=== PATIENT | male | born 1965 | race Caucasian/White ===

== ENCOUNTER 2016-07-28 13:18 | Emergency (ER) | payer SELFPAY ==
[2016-07-28 13:54] VITALS: BMI 23.6
[2016-07-28 14:05] LABS: AUTOMATED EOSINOPHIL 4.1 % (0-5); AUTOMATED LYMPH 23.6 % (17-44); AUTOMATED MONOCYTE 11.7 % (3-10); AUTOMATED NEUTROPHIL 59.6 % (45-76); MPV 8.8 fL (7.4-10.4)
[2016-07-28 14:08] LABS: LEUKOCYTES/URINE NEG (NEGATIVE); NITRITE/URINE NEG (NEGATIVE); RBC/URINE 0-2 (0-2); URINE OCCULT BLOOD NEG (NEG/TRACE); WBC/URINE 0-2 (0-2)
[2016-07-28 14:25] LABS: BLOOD UREA NITROGEN 17 MG/DL (9-20); CALCIUM 9.7 MG/DL (8.4-10.2); CALCULATED OSMOLALITY 270 MOs/Kg (270-290); CHLORIDE 104 mEq/L (98-107); GLUCOSE 80 MG/DL (70-99); SODIUM LEVEL 140 mEq/L (137-146); TOTAL PROTEIN 8.8 G/DL (6.3-8.2)
--- NOTE | 2016-07-28 17:03 | EDPRACDOC ---
- General Information Mode Of Arrival: Car - History of Present Illness Onset: YESTERDAY Pain Location: Reports: LUQ, LLQ Pain Context: Reports: Spontaneous Pain Severity: Severe Pain Quality: Reports: Aching, Sharp, Stabbing Pain Radiation: Reports: Back Adult Abdominal History: Reports: Similar Pain (dx) (PANCREATITIS, COLITIS, DIVERTICULITIS) Modifying Factors: improves with: Nothing Associated Signs & Symptoms: Reports: Nausea, Diarrhea, Dysuria, Fever. Denies : Frequency, Hematuria, Vomiting, Hematemesis, Anorexia, Melena, Urgency, Chills Oral Intake: Normal Urinary Output: Normal <Saman Nunn - Last Filed: 07/28/16 18:07> <Wade Ayala - Last Filed: 07/28/16 18:58> - General Information Chief Complaint: Abdominal Pain Stated Complaint: ABD PAIN & LOWER BACK PAIN Time Seen by Provider: 07/28/16 16:56 Home Medications: Home Medications Albuterol Sulfate [Ventolin Hfa] 1 - 2 puff INH Q4H PRN 07/28/16 Alprazolam [Xanax] 0.5 mg PO BID PRN 07/28/16 Fluticasone/Vilanterol [Breo Ellipta 100-25 Mcg INH] 1 puff INH DAILY 07/28/16 Gabapentin 300 mg PO TID 07/28/16 Hydrocodone Bit/Acetaminophen [Hydrocodon-Acetaminophen 5-325] 1 tab PO Q4H PRN #10 tab 07/28/16 Lisinopril 10 mg PO DAILY 07/28/16 Promethazine [Phenergan] 25 mg PO Q8H PRN #15 tab 07/28/16 Sertraline HCl [Zoloft] 100 mg PO DAILY 07/28/16 Umeclidinium [place] [Incruse Ellipta] 62.5 mcg INH DAILY 07/28/16 Allergies/Adverse Reactions: Allergies Allergy/AdvReac Type Severity Reaction Status Date / Time Sulfa (Sulfonamide Allergy Rash-Genera Verified 07/28/16 13:54 Antibiotics) lized - History of Present Illness HPI: PT COMPLAINS OF LLQ ABD PAIN, LOW BACK PAIN, FEVER TO 101, NAUSEA, NO VOMITING, HAS HAD SOME DIARRHEA, PT STATES HAS HX OF "KIDNEY FAILURE", PANCREATITIS, COLITIS, DIVERTICULITIS. PT STATES JUST MOVED HERE FROM [place] AND DOES NOT HAVE A PCP YET. (Saman Nunn) ED Past Medical History - History Reviewed Yes Nurses notes reviewed and agree except as marked - Patient Medical History Neurological History: Denies: Cerebrovascular Accident, Seizures, Dementia Cardiac History: Reports: Hypertension. Denies: Atrial Fibrillation, Congestive Heart Failure, Heart Attack, Hypercholesterolemia Respiratory History: Denies: COPD, Emphysema GI/ History: Reports: Gastroesophageal Reflux, PMH GI Yes/No Other ( PANCREATITIS, COLITIS, DIVERTICULITIS) Musculoskeletal History: Denies: Arthritis Psychological History: Reports: Depression, Anxiety. Denies: Schizophrenia, Bipolar Disorder Systemic History: Denies: Cancer, Hyperthyroidism, Hypothyroidism Surgical History: Reports: Appendectomy - Social Medical History Smoking Status: Heavy tobacco smoker (5 or more cigarettes/day or daily pipe/ cigar) ETOH: Abuse (8-10 BEERS DAILY) Substance Abuse: None <Saman Nunn - Last Filed: 07/28/16 18:07> EDM Review of Systems - Review of Systems Constitutional: Fever. negative: Chills Eyes: negative: Blurred Vision, Double Vision Ears: negative: Drainage Throat: negative: Pain Nose: negative: Congestion, Discharge Respiratory: negative: Cough, Shortness of Breath, Wheezing Cardiovascular: negative: Chest Pain, Palpitations Gastrointestinal: Nausea, Pain. negative: Diarrhea, Vomiting Genitourinary: Dysuria. negative: Frequency Neurological: negative: Dizziness, Headache, Numbness, Weakness Musculoskeletal: No Symptoms Reported Integumentary: No Symptoms Reported <Saman Nunn - Last Filed: 07/28/16 18:07> - Physical Exam Constitutional: Alert (Awake), No apparent distress Oriented to: Time, Person, Place - HEENT Head: Normal ( normocephalic) Eye Exam: Normal (PERRL, EOMI, Sclera white) Oropharynx: Normal (Pharynx:Moist without exudate,Gums-no swelling) Tympanic Membrane: Normal ENT EAC: Normal TMJ: Normal Nose: No Symptoms Reported (septum midline) Neck: Normal (FROM, trachea at midline) - Respiratory/Cardiovascular Respiratory: Normal - CTA (BBS clear to auscultation without adventitious sounds ) Cardiovascular: Normal (RRR without murmur, gallop or rub) - GI Auscultation: Normal (NABS) Palpation: Normal (Soft,No rebound or guarding, non distended) Tenderness: Mild, LUQ, LLQ. negative: Guarding, Rebound, Rigidity Hoyt's Sign: Negative - Musculoskeletal Back: Normal (Non-Tender) Extremities: Normal (Normal tone, Pulses 2+ No cyanosis or edema, FROM) - Integumentary Skin: Normal, Warm, Dry Lymphatics: Normal (no adenopathy) - Neurologic Memory Impaired: Normal Motor Function: Normal (Normal tone, Pulses 2+ No cyanosis or edema, FROM) Cranial Nerve: Normal (CN II-X11 intact sensation, strength 5/5) Cerebellar: Normal Mood Description: Normal Perception: Normal <Saman Nunn - Last Filed: 07/28/16 18:07> - Differential Diagnosis Diverticulitis, Gastroenteritis, IBS, Pancreatitis, Urolithiasis, UTI, Ureterolithiasis - Results 07/28/16 13:55 07/28/16 13:55 <Saman Nunn - Last Filed: 07/28/16 18:07> - Results 07/28/16 13:55 07/28/16 13:55 <Wade Ayala - Last Filed: 07/28/16 18:58> - Results WBC 7.1 xk/uL (3.8-10.8) 07/28/16 13:55 RBC 5.28 xM/uL (4.70-6.10) 07/28/16 13:55 Hgb 18.3 g/dL (14.0-18.0) H 07/28/16 13:55 Hct 53.1 % (42-52) H 07/28/16 13:55 MCV 101 fL (80-94) H 07/28/16 13:55 MCH 34.7 pg (27-32) H 07/28/16 13:55 MCHC 34.5 g/dl (33-36) 07/28/16 13:55 RDW 13.1 % (11.5-14.5) 07/28/16 13:55 Plt Count 169 xk/uL (130-400) 07/28/16 13:55 MPV 8.8 fL (7.4-10.4) 07/28/16 13:55 Neut % (Auto) 59.6 % (45-76) 07/28/16 13:55 Lymph % (Auto) 23.6 % (17-44) 07/28/16 13:55 Wilkin % (Auto) 11.7 % (3-10) H 07/28/16 13:55 Eos % (Auto) 4.1 % (0-5) 07/28/16 13:55 Baso % (Auto) 1.0 % (0-2) 07/28/16 13:55 Absolute Neuts (auto) 4.19 xk/uL (1.7-8.2) 07/28/16 13:55 Absolute Lymphs (auto) 1.63 xk/uL (0.65-4.75) 07/28/16 13:55 Sodium 140 mEq/L (137-146) 07/28/16 13:55 Potassium 4.2 mEq/L (3.5-5.1) 07/28/16 13:55 Chloride 104 mEq/L (98-107) 07/28/16 13:55 Carbon Dioxide 21 mMOL/L (22-33) L 07/28/16 13:55 Anion Gap 19 mEq/L (8-16) H 07/28/16 13:55 BUN 17 MG/DL (9-20) 07/28/16 13:55 Creatinine 1.00 MG/DL (0.66-1.25) 07/28/16 13:55 Estimated GFR (MDRD) > 60 mL/min (>=60) 07/28/16 13:55 Glucose 80 MG/DL (70-99) 07/28/16 13:55 Calculated Osmolality 270 MOs/Kg (270-290) 07/28/16 13:55 Calcium 9.7 MG/DL (8.4-10.2) 07/28/16 13:55 Total Bilirubin 1.1 MG/DL (0.2-1.3) 07/28/16 13:55 AST 73 IU/L (17-59) H 07/28/16 13:55 ALT 91 IU/L (21-72) H 07/28/16 13:55 Alkaline Phosphatase 108 IU/L (38-126) 07/28/16 13:55 Total Protein 8.8 G/DL (6.3-8.2) H 07/28/16 13:55 Albumin 4.9 G/DL (3.5-5.0) 07/28/16 13:55 Lipase 217 U/L (23-300) 07/28/16 13:55 Urine Color Pale yellow 07/28/16 13:44 Urine Clarity Clear 07/28/16 13:44 Urine pH 6.0 (5.0-8.0) 07/28/16 13:44 Ur Specific [place] </=1.005 (1.003-1.035) 07/28/16 13:44 Urine Protein Neg (NEG/TRACE) 07/28/16 13:44 Urine Glucose (UA) Neg (NEGATIVE) 07/28/16 13:44 Urine Ketones Neg (NEGATIVE) 07/28/16 13:44 Urine Occult Blood Neg (NEG/TRACE) 07/28/16 13:44 Urine Nitrite Neg (NEGATIVE) 07/28/16 13:44 Urine Bilirubin Neg (NEGATIVE) 07/28/16 13:44 Urine Urobilinogen <2.0 MG/DL (0-1) 07/28/16 13:44 Ur Leukocyte Esterase Neg (NEGATIVE) 07/28/16 13:44 Urine RBC 0-2 (0-2) 07/28/16 13:44 Urine WBC 0-2 (0-2) 07/28/16 13:44 Urine Bacteria Few (NEG/FEW) 07/28/16 13:44 Urine Mucus Occ (NEG/OCC) 07/28/16 13:44 Plasma/Serum Ethyl Alc 0.05 % (<0.01) H 07/28/16 13:55 Lab Results 07/28/16 07/28/16 07/28/16 13:55 13:55 13:55 WBC 7.1 RBC 5.28 Hgb 18.3 H Hct 53.1 H MCV 101 H MCH 34.7 H MCHC 34.5 RDW 13.1 Plt Count 169 MPV 8.8 Neut % (Auto) 59.6 Lymph % (Auto) 23.6 Wilkin % (Auto) 11.7 H Eos % (Auto) 4.1 Baso % (Auto) 1.0 Absolute Neuts (auto) 4.19 Absolute Lymphs (auto) 1.63 Sodium 140 Potassium 4.2 Chloride 104 Carbon Dioxide 21 L Anion Gap 19 H BUN 17 Creatinine 1.00 Estimated GFR (MDRD) > 60 Glucose 80 Calculated Osmolality 270 Calcium 9.7 Total Bilirubin 1.1 AST 73 H ALT 91 H Alkaline Phosphatase 108 Total Protein 8.8 H Albumin 4.9 Lipase 217 Urine Color Urine Clarity Urine pH Ur Specific [place] Urine Protein Urine Glucose (UA) Urine Ketones Urine Occult Blood Urine Nitrite Urine Bilirubin Urine Urobilinogen Ur Leukocyte Esterase Urine RBC Urine WBC Urine Bacteria Urine Mucus Plasma/Serum Ethyl Alc 0.05 H 07/28/16 13:44 WBC RBC Hgb Hct MCV MCH MCHC RDW Plt Count MPV Neut % (Auto) Lymph % (Auto) Wilkin % (Auto) Eos % (Auto) Baso % (Auto) Absolute Neuts (auto) Absolute Lymphs (auto) Sodium Potassium Chloride Carbon Dioxide Anion Gap BUN Creatinine Estimated GFR (MDRD) Glucose Calculated Osmolality Calcium Total Bilirubin AST ALT Alkaline Phosphatase Total Protein Albumin Lipase Urine Color Pale yellow Urine Clarity Clear Urine pH 6.0 Ur Specific [place] </=1.005 Urine Protein Neg Urine Glucose (UA) Neg Urine Ketones Neg Urine Occult Blood Neg Urine Nitrite Neg Urine Bilirubin Neg Urine Urobilinogen <2.0 Ur Leukocyte Esterase Neg Urine RBC 0-2 Urine WBC 0-2 Urine Bacteria Few Urine Mucus Occ Plasma/Serum Ethyl Alc (Saman Nunn) (Wade Ayala) - Additional Information CASE DISCUSSED WITH DR AYALA, CARE ENDORSED TO HIM PENDING FINAL RESULTS ( Saman Nunn) - Departure Education/Counseling Given To: Patient Education/Counseling Given Regarding: Diagnosis, Treatment, Prognosis, Follow Up <Saman Nunn - Last Filed: 07/28/16 18:07> - Departure Yes I personally saw and evaluated the patient. Disposition: Home <Wade Ayala - Last Filed: 07/28/16 18:58> - Departure Condition: Stable Final Diagnosis: Abdominal pain Instructions: Acute Abdominal Pain (ED) Referrals: None,No Provider [Primary Care Provider] - One Week Prescriptions: Hydrocodone Bit/Acetaminophen [Hydrocodon-Acetaminophen 5-325] 1 tab PO Q4H PRN #10 tab PRN Reason: Pain Promethazine [Phenergan] 25 mg PO Q8H PRN #15 tab PRN Reason: Nausea/Vomiting
[2016-07-28] MEDS ORDERED: MORPHINE 4 MG/ML INJECTION IV ONE (17:04)
[2016-07-28] MEDS ORDERED: ONDANSETRON HCL 4 MG/2 ML VIAL IV ONE (17:04)
[2016-07-28] MEDS ORDERED: NS 1,000 ML IV ONE (17:04)
[2016-07-28] MEDS ORDERED: Pharmacy Review for Metformin - IV Contrast Given SCH (18:00)
--- NOTE | 2016-07-28 18:42 | DIRPT ---
CLINICAL DATA: Left lower quadrant abdominal pain. Low back pain. Fever. Symptoms since yesterday. EXAM: CT ABDOMEN AND PELVIS WITH CONTRAST TECHNIQUE: Multidetector CT imaging of the abdomen and pelvis was performed using the standard protocol following bolus administration of intravenous contrast. CONTRAST: 80 cc Isovue 370 COMPARISON: None. FINDINGS: Lower chest: The included lung bases are clear. Liver: Significantly decreased hepatic density consistent with steatosis. No focal lesion. Hepatobiliary: Gallbladder physiologically distended, no calcified stone. No biliary dilatation. Pancreas: No inflammation or ductal dilatation. No peripancreatic fluid collection. Spleen: Normal. Adrenal glands: No nodule. Kidneys: Symmetric renal enhancement. No hydronephrosis. There is cortical scarring in the interpolar region of the left kidney. Small calcifications in the upper left kidney may be dystrophic or nonobstructing stones. Tiny accessory renal artery to the right upper pole. Stomach/Bowel: Stomach is decompressed. There are no dilated or thickened small bowel loops. Small volume of stool throughout the colon without colonic wall thickening. Minimal diverticulosis of the descending and proximal sigmoid colon without diverticulitis. The appendix is not seen, surgically absent per history. Vascular/Lymphatic: No retroperitoneal adenopathy. Abdominal aorta is normal in caliber. Moderate atherosclerosis without aneurysm. Reproductive: Prostate gland normal in size. Bladder: Physiologically distended, no wall thickening. Other: No free air, free fluid, or intra-abdominal fluid collection. Tiny fat containing umbilical hernia. Musculoskeletal: There are no acute or suspicious osseous abnormalities. There is facet arthropathy at L5-S1. IMPRESSION: 1. No acute abnormality in the abdomen/pelvis. 2. Cortical scarring in the interpolar left kidney. Dystrophic calcification versus nonobstructing stones in the upper left kidney. No hydronephrosis. 3. Significant hepatic steatosis. 4. Minimal colonic diverticulosis without diverticulitis. Electronically Signed By: Mariely Ruiz M.D. On: 07/28/2016 18:40
[2016-07-28 19:57] VITALS: BP 153/90; PULSE 96; TEMP 97.7
== END 2016-07-28 19:35 | disposition home or self-care (01) ==
LOC: ED 13:18
DX: R10.9 Unspecified abdominal pain (principal)
CPT/HCPCS: 36415; 74177; 80053; 80307; 81001; 83690; 85025; 93005; 96361; 96374; 96375; 99284; A9698; J2270; J2405